=== PATIENT | female | born 1990 ===

== ENCOUNTER → 2017-02-27 18:30 | Observation (INO) ==
[2017-02-27 17:33] LABS: Amphetamine Screen,Urine Negative ng/mL (Cutoff=1000); Barbiturate Screen,Urine Negative ng/mL (Cutoff=200); Benzodiazepines Screen,Urine Negative ng/mL (Cutoff=200); Cannabinoid Screen,Urine Negative ng/mL (Cutoff = 50); Cocaine Screen,Urine Negative ng/mL (Cutoff= 300); Opiate Screen,Urine Negative ng/mL (Cutoff=300); Phencyclidine Screen,Urine Negative ng/mL (Cutoff=25)
[2017-02-27 17:41] LABS: Protein/Creatinine Ratio,Urine 0.22 mg/mg (0-0.20)
[2017-02-27 17:42] LABS: Basophils % 0.5 %; Eosinophils # 0.2 K/mcL (0.0-0.6); Eosinophils % 1.8 %; Hemoglobin 11.6 g/dL (11.5-15.4); Immature Granulocytes % 0.6 % (0-4); Lymphocytes # 1.6 K/mcL (0.6-4.6); Lymphocytes % 18.4 %; Mean Corpuscular HGB Conc 32.2 g/dL (31.6-35.5); Mean Corpuscular Hemoglobin 27.9 pg (28.0-33.3); Mean Corpuscular Volume 86.5 fL (83.0-100.0); Mean Platelet Volume 11.6 fL (9.4-12.4); Monocytes # 0.6 K/mcL (0.0-1.3); Monocytes % 6.9 %; Neutrophils # 6.2 K/mcL (1.6-8.9); Platelet Count 271 K/mcL (140-400); Red Blood Count 4.16 M/mcL (3.82-4.97); Red Cell Distribution Width 14.5 % (11.5-14.5); Segmented Neutrophils % 71.8 %
[2017-02-27 17:56] LABS: Alanine Aminotransferase 8 Units/L (0-55); Aspartate Amino Transferase 10 Units/L (5-34); BUN/Creatinine Ratio 9 (6-26); Blood Urea Nitrogen 6 mg/dL (7-20); Lactate Dehydrogenase 156 Units/L (159-327); Uric Acid 4.7 mg/dL (2.6-6.0); eGFR For African Americans > 60 (> 60); eGFR For Non-African Americans > 60 (> 60)
--- NOTE | 2017-02-27 18:10 | OB/GYN Progress Note ---
Date of Encounter: 02/27/17 Time of Encounter: 18:08 - Assessment and Plan (1) 36 weeks gestation of Current Visit: Yes Status: Acute (2) PIH ( induced hypertension) Current Visit: Yes Status: Acute Pt with mildly elevated BP and REDDY today. On L&D labs are good and bp's are good. She reports No other PIH sx's. Will D/C and have pt go off of work. Qualifiers: Trimester: third trimester Qualified Code(s): O13.3 - Gestational [ -induced] hypertension without significant proteinuria, third trimester Subjective - Subjective Principal diagnosis: elevated BP and REDDY Interval history: 27 yo female at 36 weeks seen in office today with c/o REDDY all day today along mid frontal region. No h/o similar REDDY. Took tylenol with some help. No scotomata, no ruq pain. Occ uc's, no vb or lof. Objective - Vital Signs Vital Signs: Intake and Output 02/27/17 02/27/17 02/27/17 07:59 15:59 23:59 Other: Weight 108.4 kg Patient Weight 02/27/17 23:59 Weight 108.4 kg - Exam FHR: category 1 Auscultation: bilateral: normal Abdomen: Present: gravid Cervical dilation: ft Cervix effacement: 80 station: -2 - Labs Labs: Abnormal lab results MCH 27.9 pg (28.0-33.3) L 02/27/17 17:20 BUN 6 mg/dL (7-20) L 02/27/17 17:20 Lactate Dehydrogenase 156 Units/L (159-327) L 02/27/17 17:20 Protein/Creatinin Ratio 0.22 mg/mg (0-0.20) H 02/27/17 17:17 Urine Total Protein 37 mg/dL (1-14) H 02/27/17 17:17
== END | disposition home or self-care (01) ==
LOC: 1NENULAB
PROVIDERS: ADMIT Obstetrics & Gynecology; ATTEND Obstetrics & Gynecology

== ENCOUNTER 2017-03-20 05:48 | Inpatient (IN) ==
[2017-03-20] MEDS ORDERED: Naloxone 0.4 MG/ML INJ IVP PRN (05:52)
[2017-03-20] MEDS ORDERED: Metoclopramide 10 MG/2 ML VIAL IVP PRN ×2 (05:52→11:14)
[2017-03-20] MEDS ORDERED: Famotidine 20 MG/2 ML VIAL IVP PRN (05:52)
[2017-03-20] MEDS ORDERED: Ringers Solution, Lactated 1,000 ML IVC SCH (06:00)
[2017-03-20 07:08] LABS: Basophils % 0.5 %; Eosinophils # 0.2 K/mcL (0.0-0.6); Eosinophils % 2.5 %; Hemoglobin 11.3 g/dL (11.5-15.4); Immature Granulocytes % 0.2 % (0-4); Lymphocytes # 1.4 K/mcL (0.6-4.6); Lymphocytes % 17.8 %; Mean Corpuscular HGB Conc 32.3 g/dL (31.6-35.5); Mean Corpuscular Hemoglobin 27.6 pg (28.0-33.3); Mean Corpuscular Volume 85.6 fL (83.0-100.0); Mean Platelet Volume 12.1 fL (9.4-12.4); Monocytes # 0.6 K/mcL (0.0-1.3); Monocytes % 7.3 %; Neutrophils # 5.8 K/mcL (1.6-8.9); Platelet Count 215 K/mcL (140-400); Red Blood Count 4.09 M/mcL (3.82-4.97); Red Cell Distribution Width 14.6 % (11.5-14.5); Segmented Neutrophils % 71.7 %
[2017-03-20 07:28] LABS: Amphetamine Screen,Urine Negative ng/mL (Cutoff=1000); Barbiturate Screen,Urine Negative ng/mL (Cutoff=200); Benzodiazepines Screen,Urine Negative ng/mL (Cutoff=200); Cannabinoid Screen,Urine Negative ng/mL (Cutoff = 50); Cocaine Screen,Urine Negative ng/mL (Cutoff= 300); Opiate Screen,Urine Negative ng/mL (Cutoff=300); Phencyclidine Screen,Urine Negative ng/mL (Cutoff=25)
--- NOTE | 2017-03-20 07:33 | Anesthesia Evaluation PreOp ---
Date of Encounter: 03/20/17 Time of Encounter: 07:20 - Past History Planned Operation: c section Cardiac History: Denies any Significant Hx Pulmonary History: Denies Any Significant HX BATH TESTER History: Denies Any Significant HX Other Medical History: Denies Any Significant HX Anesthesia History: No Prior Anesthetic Complications, Past Anesthesia (lap samuel, emergency c section.) : Yes Alcohol Use: none Drug use: none Medications and Allergies Vit No.129/Iron/FA [ One Daily Tablet] 1 tab PO DAILY 02/27/17 [History] Omeprazole Magnesium [Prilosec Otc] 20 mg PO DAILY 03/20/17 [History] 3 Allergy/AdvReac Type Severity Reaction Status Date / Time vancomycin Allergy Rash Verified 03/20/17 06:00 - Meds/Allergy Pre-op Review Medications Reviewed: Yes Allergies Reviewed: Yes Beta Blockers on Current Med List: No Anesthesia Results - Labs 03/20/17 06:15 Anesthesia Exam VSS, FHTs stable Height: 5'5" Weight: 110kg NPO (# of Hours): >8 Pain Scale: 0 Pain Scale Used: Numeric (1 - 10) - HEENT Pupil (Motor): Pupils equal, EOMI Mallampati: III Teeth: Normal Oral Opening: Greater than 3 - BATH TESTER LOC: Oriented BATH TESTER Motor: Normal RUE, Normal LUE, Normal RLE, Normal LLE, Normal Face BATH TESTER Sensory: Normal: RUE, LUE, RLE, LLE, Face - Cardiac Rhythm: Regular - Pulmonary Breath Sounds: bilateral Clear, bilateral Rales, bilateral Rhonchi Respiratory Effort: Symmetrical Anesthesia Assess/Plan ASA Score: 3 Modified [place] Scale for Level of Consciousness: Cooperative, oriented, and tranquil Anesthetic Plan: Regional Monitoring Plan: Standard Monitors Recovery Plan: PACU
[2017-03-20] MEDS ORDERED: *HR* Morphine Sulfate/PF 5 MG/10 ML AMPUL ONE (07:41)
[2017-03-20] MEDS ORDERED: EPHEDrine 50 MG/ML VIAL ONE (07:41)
[2017-03-20] MEDS ORDERED: *HR* FentaNYL (PF) 100 MCG/2 ML VIAL ONE (07:42)
[2017-03-20] MEDS ORDERED: *HR* Oxytocin 10 UNIT/ML VIAL IM ONE ×2 (07:44→09:49)
[2017-03-20] MEDS ORDERED: Water for inj. (sterile) 10 ML IV ONE ×2 (07:44→07:59)
[2017-03-20] MEDS ORDERED: ceFAZolin 2,000 MG in D5% in Water 100 ML IVPB ONE (07:53)
--- NOTE | 2017-03-20 08:07 | OB/GYN History & Physical ---
Date of Encounter: 03/20/17 Time of Encounter: 08:05 Assessment and Plan (1) Term Current visit: Yes Status: Acute Pt presents at full term for rpt and BPS. She is doing well. Questions answered and consent obtained. History of Present Illness Chief complaint: Here for repeat and BPS HPI: Ms. Echeverria is a 27 year old female presents for repeat and BPS. Pt reports +GFM, no VB or LOF. Past Med Surg Social Fam HX - Past Medical History Psychiatric history: no psych history - Past Surgical History Surgical History: , cholecystectomy - Social History Smoking Status: Former smoker Smokeless Tobacco Status: No Alcohol use: none Drug use: none - Family History Mother Living Status: Still Living Hx Family Cardiac Disorders: Yes (HTN) Obstetrical History - Pregnancies : 2 Medications and Allergies Vit No.129/Iron/FA [ One Daily Tablet] 1 tab PO DAILY 02/27/17 [History] Omeprazole Magnesium [Prilosec Otc] 20 mg PO DAILY 03/20/17 [History] 3 Allergy/AdvReac Type Severity Reaction Status Date / Time vancomycin Allergy Rash Verified 03/20/17 06:00 Exam - Vital Signs Vital signs: Initial Vital Signs Temp Pulse Resp BP 98.4 F 102 18 138/86 03/20/17 06:11 03/20/17 06:11 03/20/17 06:11 03/20/17 06:11 - Constitutional Constitutional: well developed, well nourished, no acute distress - HEENT HEENT: EOMI, PERRL - Neck Neck exam: full ROM - Lungs Respiratory exam: CTAB - Cardiovascular Cardiovascular exam: RRR - Abdomen Abdomen: Present: gravid - Extremities Deep Tendon Reflex Grade: 2+ Normal Results Result Diagrams: 03/20/17 06:15 Abnormal lab results Hgb 11.3 g/dL (11.5-15.4) L 03/20/17 06:15 Hct 35.0 % (35.3-44.9) L 03/20/17 06:15 MCH 27.6 pg (28.0-33.3) L 03/20/17 06:15 RDW 14.6 % (11.5-14.5) H 03/20/17 06:15 All other labs normal.
[2017-03-20] MEDS ORDERED: *HR* HYDROmorphone (PF) 1 MG/ML SYRINGE IVP PRN (08:49)
[2017-03-20] MEDS ORDERED: *HR* Morphine 2 MG/ML SYRINGE IVP PRN (08:49)
[2017-03-20] MEDS ORDERED: *HR* Promethazine 25 MG/ML VIAL IVP PRN (08:49)
[2017-03-20] MEDS ORDERED: Ondansetron 4 MG/2 ML VIAL IVP ONE (08:49)
[2017-03-20] MEDS ORDERED: Acetaminophen IV 1,000 MG/100 ML INFUS..BTL IVPB ONE (08:50)
[2017-03-20] MEDS ORDERED: Ringers Solution, Lactated 1,000 ML ONE ×3 (08:53→23:45)
[2017-03-20] MEDS ORDERED: Azithromycin 500 MG in D5% in Water 250 ML IVPB ONE (09:18)
[2017-03-20] MEDS ORDERED: Oxytocin 20 units/ LR 1000 mL 20 UNIT/1,000 ML BAG IVC SCH ×2 (11:14)
[2017-03-20] MEDS ORDERED: Sennosides 8.6 MG TABLET PO PRN (11:14)
[2017-03-20] MEDS ORDERED: Rho Immune Globulin 1,500 UNIT SYRINGE IM ONE (11:14)
[2017-03-20] MEDS ORDERED: Ondansetron 4 MG/2 ML VIAL IVP PRN (11:14)
--- NOTE | 2017-03-20 11:30 | Anesthesia Evaluation Post Op ---
Date of Encounter: 03/20/17 Time of Encounter: 11:29 - Vital Signs Vital Signs: VSS - Lungs Lungs: Clear Ascult./Percussion - Airway Airway: Non-obstructed - Cardiovascular Regular Rate - Mental Status Mental Status: Alert & Oriented, Answers Appropriately - Pain Pain Scale: 5 Pain Scale used: Numeric (1 - 10) - Nausea Vomiting Nausea Vomiting: Not Present - Hydration Hydration: NPO, Palacios catheter - Discharge PostOp Status: Transfer Patient to floor
[2017-03-20] MEDS: *HR* Morphine 2 MG/ML SYRINGE IVP PRN ×2 (12:07→21:43)
[2017-03-20] MEDS: cephALEXin 500 MG CAPSULE PO SCH ×2 (15:21→19:58)
[2017-03-21] MEDS: Simethicone 80 MG TAB.CHEW PO PRN ×2 (02:28→09:51)
[2017-03-21] MEDS: *HR* Morphine 2 MG/ML SYRINGE IVP PRN (02:29)
[2017-03-21] MEDS: *HR* OxyCODONE/APAP 5/325 TABLET PO PRN ×2 (04:20→19:53)
[2017-03-21 05:43] LABS: Basophils % 0.2 %; Eosinophils # 0.1 K/mcL (0.0-0.6); Eosinophils % 0.8 %; Hemoglobin 8.4 g/dL (11.5-15.4); Immature Granulocytes % 0.5 % (0-4); Lymphocytes # 1.2 K/mcL (0.6-4.6); Lymphocytes % 13.5 %; Mean Corpuscular HGB Conc 32.3 g/dL (31.6-35.5); Mean Corpuscular Hemoglobin 27.9 pg (28.0-33.3); Mean Corpuscular Volume 86.4 fL (83.0-100.0); Monocytes # 0.7 K/mcL (0.0-1.3); Monocytes % 7.7 %; Neutrophils # 6.7 K/mcL (1.6-8.9); Platelet Count 181 K/mcL (140-400); Red Blood Count 3.01 M/mcL (3.82-4.97); Red Cell Distribution Width 14.7 % (11.5-14.5); Segmented Neutrophils % 77.3 %
--- NOTE | 2017-03-21 07:58 | OB/GYN Progress Note ---
Date of Encounter: 03/21/17 Time of Encounter: 07:56 - Assessment and Plan (1) Status post section Current Visit: Yes Status: Acute s/p C/S, POD#1, patient doing well, cont current inpt care d/c tomorrow Subjective - Subjective Patient reports: appetite normal, voiding normally, pain well controlled, ambulating normally [place]: doing well Objective - Vital Signs Latest vital signs: Vital Signs Temp Pulse Resp BP Pulse Ox 03/21/17 03:13 99 F 102 20 149/87 96 03/20/17 23:19 99.4 F 87 18 121/79 97 03/20/17 19:53 98.5 F 92 14 129/76 98 03/20/17 14:15 98.7 F 77 16 135/85 98 03/20/17 13:15 98.9 F 86 16 126/65 97 03/20/17 12:45 99.0 F 86 16 127/83 97 03/20/17 12:20 98.4 F 80 16 144/93 98 03/20/17 12:00 98.1 F 84 16 130/92 98 03/20/17 11:45 98.5 F 82 16 138/82 98 03/20/17 11:30 98.8 F 85 16 138/83 98 03/20/17 11:18 98.6 F 76 18 152/85 Intake and Output 03/20/17 03/20/17 03/21/17 15:59 23:59 07:59 Intake Total 350 / 350 2019 / 2019 800 / 800 Output Total 400 / 400 500 / 500 2100 / 2100 Balance -50 / -50 1520 / 1520 -1300 / -1300 Intake: IV Fluids 350 / 350 900 / 900 Pitocin 20 unit In 1,000 ml @ 900 / 900 125 mls/hr IVC .Q8H [facility] Rx#: [id number] Ofirmev 1,000 mg/100 ml 1,000 100 / 100 mg In 100 ml @ 400 mls/hr IVPB ONCE ONE Rx#:[id number] Zithromax 500 mg In Dextrose 5% 250 / 250 250 ML @ 252 mls/hr IVPB ONCE ONE Rx#:[id number] Oral 1120 / 1120 800 / 800 Output: Urine 400 / 400 500 / 500 400 / 400 Urethral (Palacios) 500 / 500 Catheter 1700 / 1700 - Exam Lungs: bilateral: normal Chest: Normal S1, Normal S2 Extremities: Present: normal Abdomen: Present: normal appearance Incision: Present: normal Uterus: Present: normal - Labs Labs: Laboratory Results - last 24 hr 03/21/17 05:19 WBC 8.7 RBC 3.01 L Hgb 8.4 L D Hct 26.0 L MCV 86.4 MCH 27.9 L MCHC 32.3 RDW 14.7 H Plt Count 181 MPV 12.0 Immature Gran % 0.5 Seg Neutrophils % 77.3 Lymphocytes % 13.5 Monocytes % 7.7 Eosinophils % 0.8 Basophils % 0.2 Neutrophils # 6.7 Lymphocytes # 1.2 Monocytes # 0.7 Eosinophils # 0.1 Basophils # 0.0
[2017-03-21] MEDS: Ibuprofen 600 MG TABLET PO PRN (09:51)
[2017-03-21] MEDS: Prenatal Vit/FA 1 EACH TABLET PO SCH (09:51)
[2017-03-21] MEDS: cephALEXin 500 MG CAPSULE PO SCH ×3 (09:52→19:52)
[2017-03-21] MEDS: Azithromycin 250 MG TABLET PO SCH (09:52)
[2017-03-22] MEDS: Simethicone 80 MG TAB.CHEW PO PRN ×2 (01:25→08:23)
[2017-03-22] MEDS: *HR* OxyCODONE/APAP 5/325 TABLET PO PRN ×2 (03:29→09:22)
[2017-03-22] MEDS: Ibuprofen 600 MG TABLET PO PRN ×2 (03:30→09:22)
[2017-03-22] MEDS: Azithromycin 250 MG TABLET PO SCH (08:23)
[2017-03-22] MEDS: Prenatal Vit/FA 1 EACH TABLET PO SCH (08:23)
[2017-03-22] MEDS: cephALEXin 500 MG CAPSULE PO SCH (08:24)
[2017-03-22 08:31] VITALS: BP 123/79
--- NOTE | 2017-03-22 09:53 | Discharge Summary ---
Date of Encounter: 03/22/17 Time of Encounter: 09:54 - Discharge Diagnosis (1) Status post section Priority: Primary Status: Acute (2) Term Priority: Secondary Status: Resolved - Discharge Medications Prescriptions: OxyCODONE/APAP 5/325 [Percocet 5/325 MG] 1 each PO Q4HR PRN #20 tablet PRN Reason: Moderate pain 4-6 Ibuprofen [Motrin] 600 mg PO Q6HR PRN #30 tablet PRN Reason: Cramping Breast Pump [BREAST PUMP] 1 each .ROUTE AD #1 each Home Medications: Vit No.129/Iron/FA [ One Daily Tablet] 1 tab PO DAILY 02/27/17 [History] Omeprazole Magnesium [Prilosec Otc] 20 mg PO DAILY 03/20/17 [History] Breast Pump [BREAST PUMP] 1 each .ROUTE AD #1 each 03/21/17 [Rx] Ibuprofen [Motrin] 600 mg PO Q6HR PRN #30 tablet 03/22/17 [Rx] OxyCODONE/APAP 5/325 [Percocet 5/325 MG] 1 each PO Q4HR PRN #20 tablet 03/22/17 [Rx] Allergies/Adverse Reactions: 3 Allergy/AdvReac Type Severity Reaction Status Date / Time vancomycin Allergy Rash Verified 03/20/17 06:00 Data Procedures and tests throughout hospitalization: Laboratory Tests 03/20/17 03/20/17 03/21/17 06:15 06:15 05:19 WBC 8.1 8.7 RBC 4.09 3.01 L Hgb 11.3 L 8.4 L D Hct 35.0 L 26.0 L MCV 85.6 86.4 MCH 27.6 L 27.9 L MCHC 32.3 32.3 RDW 14.6 H 14.7 H Plt Count 215 181 MPV 12.1 12.0 Immature Gran % 0.2 0.5 Seg Neutrophils % 71.7 77.3 Lymphocytes % 17.8 13.5 Monocytes % 7.3 7.7 Eosinophils % 2.5 0.8 Basophils % 0.5 0.2 Neutrophils # 5.8 6.7 Lymphocytes # 1.4 1.2 Monocytes # 0.6 0.7 Eosinophils # 0.2 0.1 Basophils # 0.0 0.0 Urine Opiates Screen Negative Ur Barbiturates Screen Negative Ur Phencyclidine Scrn Negative Ur Amphetamines Screen Negative U Benzodiazepines Scrn Negative Urine Cocaine Screen Negative U Marijuana (THC) Screen Negative Date of admission: 03/20/17 05:48 Primary care physician: Severo Douglass Discharging clinician: Alejandra Del Cid Anticipated date of discharge: 03/22/17 - Patient Status Disposition: Home, Self-Care Condition: Good Functional capacity at discharge: independent ambulation Overall status at discharge: patient is progressing back to baseline - Discharge Instructions Follow Up With: Minh Nation MD [Partnered Physician] - - Diet and Activity Activity: resume usual activities as tolerated Diet: advance to your usual diet Hospital Course Reason for admission: section Delivery: section Other procedures: none complications: none Discharge diagnosis: IUP at term delivered baby: male Time Attestation: Total time spent providing and/or coordinating discharge services: Time Spent: Less than 30 minutes - VTE Documentation of Mechanical Device: Intermittent pneumatic compression device Exam - Constitutional Vitals: Temp Pulse Resp BP Pulse Ox 98.3 F 86 16 123/79 97 03/22/17 07:25 03/22/17 07:25 03/22/17 07:25 03/22/17 07:25 03/22/17 07:25 General appearance IM: A&O X 3, no acute distress - Respiratory Respiratory exam: Present: CTAB. Absent: respiratory distress - Cardiovascular Cardiovascular exam IM: Present: RRR. Absent: irregular rhythm - GI/Abdominal GI/Abdominal exam IM: normal bowel sounds Incision: dressed (Balaji in place) - Rectal Rectal exam: deferred - Uterine Tone: Firm - Extremities Exam Extremities exam IM: Absent: calf tenderness - Neurological Exam Neurological exam: alert, oriented X3
--- NOTE | 2017-04-14 11:50 | OB/GYN Procedure Note ---
Section - Date of procedure: 04/14/17 Preop diagnosis: desires repeat Post-op diagnosis: same Procedure: section, repeat low transverse Surgeon: Minh Nation Staff Anesthetist: Amy Mina Anesthesia Type: Spinal section complications: none Disposition: L&D Recovery Room Specimens: Placenta - (s) A Infant Delivery Date: 03/20/17 Infant Delivery Time: 09:06 Presentation: vertex Gender: Male Gram Weight: 3245 kg at 1 minute: 8 at 5 minutes: 9 Specimens collected: cord blood Cord: 3 umbilical vessels - Narrative Narrative: Since 19-year-old 2 now para 2 female presented to labor and delivery for repeat section. She was aware of operative risks and signed appropriate consent. Description procedure: Patient was taken operating room where spinal anesthesia was administered. She was prepped draped in usual sterile fashion bladder was drained of clear urine with Palacios catheter once adequate anesthesia was determined scalp was used to make Pfannenstiel skin incision this was sharply taken down the rectus fascia which was incised midline fascial incision was extended bilaterally plain was developed superiorly and distally and the rectus muscles divided in the midline. Peritoneum was entered bluntly and the bladder blade was placed and the bladder flap was developed and lower uterine segment. Scalpel was used to make a low transverse uterine incision which was extended bluntly bilaterally. Membranes were ruptured revealing clear fluid. Infant was delivered from vertex presentation cord was clamped and cut and was handed to nursery personnel. Placenta was delivered manually and uterine cavity was massaged free of all residual tissue uterus was closed 0 Vicryl in a running lock stitch hemostasis was ensured. Fascia was closed 0 Vicryl in running manner. Again irrigation was performed hemostasis was ensured skin edges reapproximated with 4-0 Vicryl all sponge and instruments counts are correct patient was taken recovery in good condition.
== END 2017-03-22 12:35 | disposition home or self-care (01) | DRG 766 ==
LOC: 1NENULAB 05:48 → 1NENUOBS 11:12
PROVIDERS: ADMIT Obstetrics & Gynecology; ATTEND Obstetrics & Gynecology